=== PATIENT | female | born 1945 | race Caucasian/White ===

== ENCOUNTER → 2016-07-01 | Outpatient (CLI) | payer OTHER, MEDICARE | LOC: MMPC 11:11 | DX: F32.9 Major depressive disorder, single episode, unspecified (principal); M10.9 Gout, unspecified; J44.9 Chronic obstructive pulmonary disease, unspecified; E03.9 Hypothyroidism, unspecified; E66.9 Obesity, unspecified; F17.210 Nicotine dependence, cigarettes, uncomplicated; I10 Essential (primary) hypertension | CPT/HCPCS: 99213; G0463 ==

== ENCOUNTER → 2016-10-20 | Outpatient (CLI) | payer OTHER, MEDICARE | LOC: MMPC 11:11 | DX: F32.9 Major depressive disorder, single episode, unspecified (principal); M10.9 Gout, unspecified; E03.9 Hypothyroidism, unspecified; I10 Essential (primary) hypertension; J44.9 Chronic obstructive pulmonary disease, unspecified; E66.9 Obesity, unspecified; F17.210 Nicotine dependence, cigarettes, uncomplicated | CPT/HCPCS: 99213; G0463 ==